=== PATIENT | male | born 1995 | race Caucasian/White ===

== ENCOUNTER 2017-02-04 19:01 | Emergency (ER) | payer OTHER ==
[2017-02-04] MEDS ORDERED: PSEUDOEPHEDRINE HCL 30 MG TABLET PO ONE (21:21)
[2017-02-04] MEDS ORDERED: GUAIFENESIN 600 MG TABLET.SA PO ONE (21:21)
--- NOTE | 2017-02-04 21:26 | ER Document Report ---
HPI - HPI Patient complains to provider of: sore throat Pain Level: 2 Context: Patient is a 21-year-old male presents emergency Department complaining of sore throat and nasal drainage since this morning. Patient states he has had sick contacts at home and is coughing tested positive for strep and was treated about a month ago. Denies any difficulty swallowing, difficulty breathing, chest pain, productive cough, nausea or vomiting. Denies any medical or surgical history. Does not have a primary care provider. Denies any allergies - REPRODUCTIVE Reproductive: DENIES: : - DERM Skin Color: Normal Past Medical History - Social History Smoking Status: Never Smoker Chew tobacco use (# tins/day): No Frequency of alcohol use: Rare Drug Abuse: None Family History: Hypertension Patient has suicidal ideation: No Patient has homicidal ideation: No Renal/ Medical History: Denies: Hx Peritoneal Dialysis Traumatic Medical History: Reports: Hx Fractures Surgical Hx: Negative - Immunizations Immunizations up to date: Yes Hx Diphtheria, Pertussis, Tetanus Vaccination: Yes Vertical Provider Document - CONSTITUTIONAL Agree With Documented VS: Yes Exam Limitations: No Limitations General Appearance: WD/WN, No Apparent Distress Notes: PHYSICAL EXAM GENERAL: Alert, interacts well. HEAD: Normocephalic, atraumatic. EYES: Pupils equal, round, and reactive to light. Extraocular movements intact. ENT: Oral mucosa moist, tongue midline. NECK: Full range of motion. Supple. Trachea midline. LUNGS: Clear to auscultation bilaterally, no wheezes, rales, or rhonchi. No respiratory distress. HEART: Regular rate and rhythm. No murmurs, gallops, or rubs. EXTREMITIES: Moves all 4 extremities spontaneously. No edema, radial and dorsalis pedis pulses 2/4 bilaterally. No cyanosis. NEUROLOGICAL: Alert and oriented x4. Normal speech. PSYCH: Normal affect, normal mood. SKIN: Warm, dry, normal turgor. No rashes or lesions noted. - INFECTION CONTROL TRAVEL OUTSIDE OF THE [place] IN LAST 30 DAYS: No - RESPIRATORY O2 Sat by Pulse Oximetry: 99 Course - Re-evaluation Re-evalutation: 02/04/17 21:26 Patient is a 29-year-old male who is hemodynamically stable, no acute distress and afebrile. Rapid strep came back negative. Throat culture sent. Discussed [id number] remedies for patient's symptoms. With primary care. - Vital Signs Vital signs: Temp Pulse Resp BP Pulse Ox 97.8 F 58 L 18 110/61 99 02/04/17 20:02 02/04/17 20:02 02/04/17 20:02 02/04/17 20:02 02/04/17 20:02 Discharge - Discharge Clinical Impression: Sore throat Condition: Good Disposition: HOME, SELF-CARE Instructions: Sore Throat ([facility]) Additional Instructions: Please follow up with your primary care physician as needed If your throat culture is positive, you will hear from our culture nurse in 2-5 days. She will call in a prescription for you if indicated. Medications to take [id number]: pseudophedrine, benadryl or claritin, mucinex Forms: Return to Work Referrals: [facility] [NO LOCAL MD] - Follow up as needed HALINA SIFUENTES MD [[facility]] - Follow up as needed
[2017-02-04 21:43] VITALS: BP 123/76
== END 2017-02-04 21:43 | disposition home or self-care (01) ==
LOC: ER 19:01
DX: J02.9 Acute pharyngitis, unspecified (principal)
CPT/HCPCS: 87070; 87880; 99283

== ENCOUNTER 2017-03-09 16:26 | Emergency (ER) | payer OTHER ==
[2017-03-09 16:32] VITALS: BP 137/78
[2017-03-09] MEDS ORDERED: ALBUTEROL SULFATE 0.083% NEB 2.5 MG/3 ML AMPUL NEB ONE (16:59)
--- NOTE | 2017-03-09 17:00 | ER Document Report ---
ED Medical Screen (RME) - General Chief Complaint: Breathing Difficulty Stated Complaint: DIFFICULTY BREATHING Time Seen by Provider: 03/09/17 16:32 Mode of Arrival: Ambulatory Information source: Patient TRAVEL OUTSIDE OF THE [place] IN LAST 30 DAYS: No - HPI Patient complains to provider of: Cough, shortness of breath Onset: Yesterday Onset/Duration: Persistent Associated Symptoms: Shortness of breath Exacerbated by: Denies Relieved by: Denies Similar symptoms previously: No Recently seen / treated by doctor: No Notes: 03/09/17 16:59 Patient is a 21-year-old male who presents to the emergency room complaining of shortness of breath that started yesterday and worsened today while he was outside working in the yard, he states he is not a smoker but he has been smoking recently, he has had a cough for 3 days, it is nonproductive, no fever, no history of asthma - Related Data Allergies/Adverse Reactions: No Known Drug Allergies Allergy (Verified 03/09/17 16:29) Past Medical History Renal/ Medical History: Denies: Hx Peritoneal Dialysis Traumatic Medical History: Reports: Hx Fractures - Immunizations Immunizations up to date: Yes Hx Diphtheria, Pertussis, Tetanus Vaccination: Yes Physical Exam - Vital signs Vitals: Temp Pulse Resp BP Pulse Ox 98.2 F 88 21 H 137/78 H 100 03/09/17 16:29 03/09/17 16:29 03/09/17 16:29 03/09/17 16:29 03/09/17 16:29 Course - Vital Signs Vital signs: Temp Pulse Resp BP Pulse Ox 98.2 F 88 21 H 137/78 H 100 03/09/17 16:29 03/09/17 16:29 03/09/17 16:29 03/09/17 16:29 03/09/17 16:29
--- NOTE | 2017-03-09 17:44 | RADIOLOGY REPORT (SQ) ---
EXAM DESCRIPTION: CHEST PA/LAT COMPLETED DATE/TIME: 03/09/2017 5:29 pm REASON FOR STUDY: sob COMPARISON: None. EXAM PARAMETERS: NUMBER OF VIEWS: two views TECHNIQUE: Digital Frontal and Lateral radiographic views of the chest acquired. RADIATION DOSE: NA LIMITATIONS: none FINDINGS: LUNGS AND PLEURA: No opacities, masses or pneumothorax. No pleural effusion. MEDIASTINUM AND HILAR STRUCTURES: No masses or contour abnormalities. HEART AND VASCULAR STRUCTURES: Heart normal size. No evidence for failure. BONES: No acute findings. HARDWARE: None in the chest. OTHER: No other significant finding. IMPRESSION: NO SIGNIFICANT RADIOGRAPHIC FINDING IN THE CHEST. TECHNICAL DOCUMENTATION: JOB ID: [id number] [employer]- All Rights Reserved
--- NOTE | 2017-03-09 18:08 | ER Document Report ---
ED Respiratory Problem - General Mode of Arrival: Ambulatory Information source: Patient TRAVEL OUTSIDE OF THE [place] IN LAST 30 DAYS: No - HPI Patient complains to provider of: Short of breath Onset: Yesterday Duration: Worse/persistent - General Chief Complaint: Breathing Difficulty Stated Complaint: DIFFICULTY BREATHING Time Seen by Provider: 03/09/17 16:32 Notes: Patient is a 21-year-old male who presents to the emergency department today with complaints of shortness of breath. Patient states that it happened "a little bit yesterday" but mostly occurred today. Patient also states he noticed a slight chest pressure today. Patient states he was working outside [employer], got in to his vehicle to return home when he started noticing chest pressure. Patient states this pressure lasted for approximately 20 minutes. Patient states he recently began smoking a few cigarettes a day recently. Patient has a history of asthma, lung problems, heart problems, or feeling anxious/nervous about anything. (GUILLERMO MUNIZ) - Related Data Allergies/Adverse Reactions: No Known Drug Allergies Allergy (Verified 03/09/17 16:29) Past Medical History - General Information source: Patient - Social History Smoking Status: Current Every Day Smoker Cigarette use (# per day): Yes - "a few a day" Chew tobacco use (# tins/day): No Frequency of alcohol use: Social Drug Abuse: None Lives with: Family Family History: Reviewed & Not Pertinent, Hypertension Patient has suicidal ideation: No Patient has homicidal ideation: No Traumatic Medical History: Reports: Hx Fractures Surgical Hx: Negative - Immunizations Immunizations up to date: Yes Hx Diphtheria, Pertussis, Tetanus Vaccination: Yes Review of Systems - Review of Systems Constitutional: No symptoms reported EENT: No symptoms reported Cardiovascular: See HPI, Chest pain Respiratory: See HPI, Short of breath Gastrointestinal: No symptoms reported Genitourinary: No symptoms reported Male Genitourinary: No symptoms reported Musculoskeletal: No symptoms reported Skin: No symptoms reported Hematologic/Lymphatic: No symptoms reported Neurological/Psychological: No symptoms reported -: Yes All other systems reviewed and negative Physical Exam - Vital signs Vitals: Temp Pulse Resp BP Pulse Ox 98.2 F 88 21 H 137/78 H 100 03/09/17 16:29 03/09/17 16:29 03/09/17 16:29 03/09/17 16:29 03/09/17 16:29 - Notes Notes: Physical Exam: General: Alert, appears well. HEENT: Normocephalic. Atraumatic. PERRLA. Extraocular movements intact. Oropharynx clear. Neck: Supple. Respiratory: No respiratory distress. Clear and equal breath sounds bilaterally. Abdominal: Normal Inspection. No distension. Extremities: Moves all four extremities. Neurological: Cranial nerves II-XII grossly intact bilaterally. Normal cognition. AAOx4. Normal speech. Psychological: Normal affect. Normal Mood. Skin: Warm. Dry. Normal color. (GUILLERMO MNUIZ) Discharge - Discharge Clinical Impression: Shortness of breath Condition: Stable Disposition: HOME, SELF-CARE Instructions: Stop Smoking ([facility]) Additional Instructions: Do not smoke, drink alcohol excessively, or use any drugs not prescribed for you by a physician. Rest and drink plenty of fluids. Return to ER if you are feeling worse. Your EKG and chest x ray are normal. Your blood pressure was slightly elevated- this can sometimes be an isolated reading due to coming to ER. Follow up for a recheck within one week. Forms: Elevated Blood Pressure Scribe Attestation: 03/09/17 18:17 I personally performed the services described in the documentation, reviewed and edited the documentation which was dictated to the scribe in my presence, and it accurately records my words and actions. (MANINDER FELICIANO) Scribe Documentation - Scribe Written by Aubrey:: Aubrey Ag, 03/09/17 181 acting as scribe for :: Cece
--- NOTE | 2017-03-09 20:20 | EKG REPORT ---
SEVERITY:- NORMAL ECG - SINUS RHYTHM : Confirmed by: Orlin Montana MD 09-Mar-2017 20:20:12
== END 2017-03-09 18:21 | disposition home or self-care (01) ==
LOC: ER 16:26
DX: R06.02 Shortness of breath (principal); R07.9 Chest pain, unspecified; R06.00 Dyspnea, unspecified; F17.210 Nicotine dependence, cigarettes, uncomplicated
CPT/HCPCS: 71020; 93005; 93010; 94640; 99285

== ENCOUNTER 2019-09-04 20:28 | Emergency (ER) | payer OTHER ==
[2019-09-04 20:45] VITALS: BP 118/58
[2019-09-04] MEDS ORDERED: LIDOCAINE 1% INJ-PF (10 MG/ML) 30 ML SDV INJ ONE (21:08)
[2019-09-04] MEDS ORDERED: CEFTRIAXONE INJ 250 MG VIAL IM ONE (21:08)
[2019-09-04] MEDS ORDERED: AZITHROMYCIN 250 MG TABLET PO ONE (21:08)
--- NOTE | 2019-09-04 21:26 | ER Document Report ---
HPI - HPI Time Seen by Provider: 09/04/19 21:10 Notes: Patient is a 23-year-old male requesting testing for STDs as he had a possible exposure with his partner. Patient states that he has a little discomfort when he urinates over the past week, but has not noticed any rash or discharge. He i s able to eat and drink without difficulty. He is having normal bowel movements. No other concerns or complaints. Denies drug allergies. Denies any headache, fever, neck pain, URI, sore throat, chest pain, palpitations, syncope, cough, shortness of breath, wheeze, dyspnea, abdominal pain, nausea/vomiting/diarrhea, or rash. - ROS Systems Reviewed and Negative: Yes All other systems reviewed and negative - REPRODUCTIVE Reproductive: DENIES: : Past Medical History - Social History Smoking Status: Never Smoker Family History: Reviewed & Not Pertinent, Hypertension Renal/ Medical History: Denies: Hx Peritoneal Dialysis Traumatic Medical History: Reports: Hx Fractures - Immunizations Immunizations up to date: Yes Hx Diphtheria, Pertussis, Tetanus Vaccination: Yes Vertical Provider Document - CONSTITUTIONAL Agree With Documented VS: Yes Notes: PHYSICAL EXAMINATION: GENERAL: Well-appearing, well-nourished and in no acute distress. HEAD: Atraumatic, normocephalic. EYES: Pupils equal round and reactive to light, extraocular movements intact, sclera anicteric, conjunctiva are normal. LUNGS: Breath sounds clear to auscultation bilaterally and equal. No wheezes rales or rhonchi. HEART: Regular rate and rhythm without murmurs, rubs, gallops. ABDOMEN: Soft, nontender, nondistended abdomen. No guarding, no rebound. Normal bowel sounds present. No CVA tenderness bilaterally. : Uncircumcised. no urethral discharge. No obvious lymphadenopathy or hernia. Nontender to palpation to the penis, scrotum, testicles. There is no erythema, rash, lesion, ulceration, necrosis. Musculoskeletal: FROM to passive/active. Strength 5+/5. Extremities: No cyanosis, clubbing, or edema b/l. Peripheral pulses 2+. Capillary refill less than 3 seconds. NEUROLOGICAL: Normal speech, normal gait. PSYCH: Normal mood, normal affect. SKIN: Warm, Dry, normal turgor, no rashes or lesions noted. - INFECTION CONTROL TRAVEL OUTSIDE OF THE [place] IN LAST 30 DAYS: No Course - Re-evaluation Re-evalutation: 09/04/19 21:28 Patient is an afebrile, well-hydrated, 23-year-old male who presents with po ssible exposure to STD. Vitals are acceptable without significant tachycardia, tachypnea, or hypoxia. PE is otherwise unremarkable. Patient's abdomen is soft and nontender. Chlamydia gonorrhea tests are pending. Patient did receive Zithromax and Rocephin. No further work-up warranted at this time. Low suspicion/risk for acute appendicitis, bowel obstruction, acute cholecystitis, perforated diverticulitis, incarcerated hernia, pancreatitis, perforated ulcer, peritonitis, sepsis, testicular torsion, or other systemic emergent condition at this time. Patient is aware that his condition can change from initial presentation and he needs to monitor symptoms closely and seek medical attention if any acute changes. Conservative measures otherwise for symptoms. Recheck with PCM in 2-3 days. See the health department this next week. Return to the ED with any worsening/concerning symptoms otherwise as reviewed in discharge. Patient is in agreement. - Vital Signs Vital signs: Temp Pulse Resp BP Pulse Ox 98.3 F 70 20 118/58 L 96 09/04/19 20:43 09/04/19 20:43 09/04/19 20:43 09/04/19 20:43 09/04/19 20:43 Discharge - Discharge Clinical Impression: Possible exposure to STD Condition: Stable Disposition: HOME, SELF-CARE Additional Instructions: Maintain fluid intake Proper hygienic technique Keep the skin clean Safe sexual practices with condoms everytime Tylenol/ibuprofen as needed Check in with the health department this week for further testing if warranted Your chlamydia/gonorrhea tests are pending and you will be notified if positive results; you may call in 1 day for the results as well F/u with your PCM in 3-5 days for a recheck Return to the ED with any development of HAN/fever, trouble with vision, eye redness, worsening pain, urethral discharge, urinary retention, blood in the urine, flank pain, abdominal pain, n/v, Chest Pain, shortness of breath, joint pains, trouble breathing, or any other worsening/concerning symptoms as needed otherwise. [facility] [NO [facility]AL MD] - Follow up in 3-5 days
[2019-09-04 23:11] LABS: CHLAM PCR DETECTED (NOT DETECT)
== END 2019-09-04 21:40 | disposition home or self-care (01) ==
LOC: ER 20:28
DX: Z20.2 Contact with and (suspected) exposure to infections with a predominantly sexual mode of transmission (principal); R30.0 Dysuria
CPT/HCPCS: 99283; 96372; 87491; 87591; J3490; J0696

== ENCOUNTER 2020-11-09 17:44 | Emergency (ER) | payer OTHER ==
[2020-11-09 17:52] VITALS: BP 111/92
[2020-11-09] MEDS ORDERED: CEFTRIAXONE INJ 250 MG VIAL IM ONE (17:59)
[2020-11-09] MEDS ORDERED: LIDOCAINE 1% INJ (10 MG/ML) 10 ML MDV INJ ONE (17:59)
[2020-11-09] MEDS ORDERED: METRONIDAZOLE 500 MG TABLET PO ONE (18:00)
[2020-11-09] MEDS ORDERED: AZITHROMYCIN 250 MG TABLET PO ONE (18:00)
--- NOTE | 2020-11-09 18:01 | ER Document Report ---
HPI - HPI Patient complains to provider of: Chlamydia exposure Time Seen by Provider: 11/09/20 17:54 Onset: Last week Quality of pain: No pain Pain Level: Denies Context: Patient reports recent exposure to chlamydia. Patient denies any urinary symptoms or penile discharge. Associated Symptoms: denies: Fever, Nausea, Vomiting Exacerbated by: Denies Relieved by: Denies Similar symptoms previously: Yes Recently seen / treated by doctor: No - ROS ROS below otherwise negative: Yes Systems Reviewed and Negative: Yes All other systems reviewed and negative - CONSTITUTIONAL Constitutional: DENIES: Fever, Chills - RESPIRATORY Respiratory: DENIES: Trouble Breathing, Coughing - GASTROINTESTINAL Gastrointestinal: DENIES: Abdominal Pain, Nausea, Patient vomiting - URINARY Urinary: DENIES: Dysuria, Urgency, Frequency - DERM Skin Color: Normal Skin Problems: None Past Medical History - General Information source: Patient - Social History Smoking Status: Never Smoker Frequency of alcohol use: None Drug Abuse: None Occupation: Active duty Family History: Reviewed & Not Pertinent, Hypertension - Medical History Medical History: Negative Renal/ Medical History: Denies: Hx Peritoneal Dialysis Traumatic Medical History: Reports: Hx Fractures Surgical Hx: Negative - Immunizations Immunizations up to date: Yes Hx Diphtheria, Pertussis, Tetanus Vaccination: Yes Vertical Provider Document - CONSTITUTIONAL Agree With Documented VS: Yes Exam Limitations: No Limitations General Appearance: WD/WN, No Apparent Distress - INFECTION CONTROL TRAVEL OUTSIDE OF THE [place] IN LAST 30 DAYS: No - HEENT HEENT: Atraumatic, Normocephalic - NECK Neck: Normal Inspection, Supple - RESPIRATORY Respiratory: Breath Sounds Normal, No Respiratory Distress - CARDIOVASCULAR Cardiovascular: Regular Rate, Regular Rhythm - GI/ABDOMEN Gastrointestinal: Abdomen Soft - REPRODUCTIVE Notes: Patient deferred - BACK Back: Normal Inspection. negative: CVA Tenderness-Right, CVA Tenderness-Left - MUSCULOSKELETAL/EXTREMETIES Musculoskeletal/Extremeties: MAEW - NEURO Level of Consciousness: Awake, Alert, Appropriate Motor/Sensory: No Motor Deficit - DERM Integumentary: Warm, Dry, No Rash Course - Re-evaluation Re-evalutation: 11/09/20 18:15 Patient with recent exposure to chlamydia. Patient denies any other symptoms at this time. Patient is just requesting treatment. 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 Patient encouraged to follow- up with his primary doctor for recheck. - Vital Signs Vital signs: Temp Pulse Resp BP Pulse Ox 98.0 F 74 16 111/92 H 99 11/09/20 17:49 11/09/20 17:49 11/09/20 17:49 11/09/20 17:49 11/09/20 17:49 - Laboratory Results Critical Laboratory Results Reviewed: No Critical Results - Radiology Results Critical Radiology Results Reviewed: No Critical Results Discharge - Discharge Clinical Impression: Encounter for assessment of STD exposure Condition: Stable Disposition: HOME, SELF-CARE Instructions: Azithromycin ([facility]), Metronidazole ([facility]), Rocephin ([facility]) Additional Instructions: Return immediately for any new or worsening symptoms Followup with your primary care provider, call tomorrow to make a followup appointment Safe sex practices, always use a condom Follow-up with your BAS for additional HIV testing Referrals: [facility] [Provider Group] - Follow up as needed
[2020-11-09 19:53] LABS: CHLAM PCR DETECTED (NOT DETECT)
== END 2020-11-09 18:17 | disposition home or self-care (01) ==
LOC: ER 17:44
DX: Z20.2 Contact with and (suspected) exposure to infections with a predominantly sexual mode of transmission (principal)
CPT/HCPCS: 99284; 96372; 87491; 87591; J0696